=== PATIENT | male | born 1945 | race Caucasian/White ===

== ENCOUNTER → 2019-11-07 10:48 | Outpatient (CLI) | payer MEDICARE, SELFPAY ==
--- NOTE | 2019-11-07 11:00 | CT_ITS ---
PROCEDURE: CT TEMPORAL BONE WITHOUT CLINICAL HISTORY: HEARING LOSS COMPARISON: No exams were available for comparison TECHNIQUE: Axial images obtained with sagittal and coronal reformats. All CT scans at the facility use one or more dose reduction, viz: automated exposure control, ma/kV adjustment per patient size (including targeted exams where dose is matched to indication, i.e. head), or iterative reconstruction technique. FINDINGS: Mucosal thickening involves the ethmoid sinuses on the right anteriorly. Maxillary sinuses show no significant mucosal thickening or air-fluid levels. There is some minimal cortical thickening involving the posterior lateral wall the left maxillary sinus nonspecific. Sphenoid and frontal sinuses are unremarkable. The mastoid sinuses have an unremarkable appearance. The middle ears are well aerated. No mass, bony erosive change, or scutal erosion or epitympanic opacification apparent. The middle ear ossicles have an unremarkable appearance. The petrous bone/temporal bone is unremarkable. The Incidental note is made generalized atrophy of the brain with prominence of the subarachnoid space in the right middle cranial fossa anteriorly and may be due to an arachnoid cyst at 4 by 2.9 cm. The scattered small nodes are present in the neck. The TMJs are unremarkable.. There is mild leftward nasal septal deviation superiorly and rightward nasal septal deviation inferiorly with a small septal spur projecting toward the right IMPRESSION: 1. Unremarkable temporal bone CT without contrast. 2. Minimal mucosal thickening of the ethmoid sinuses on the right Dictated by: Tiburcio Amador MD 11/08/2019 10:02 Electronically signed by Tiburcio Amador MD in [place] 11/08/2019 10:02
== END ==
PROVIDERS: PCP Internal Medicine Adolescent Medicine; Visit Provider Otolaryngology
DX: H90.3 Sensorineural hearing loss, bilateral (principal)
CPT/HCPCS: 70480

== ENCOUNTER → 2019-11-16 10:34 | Outpatient (CLI) | payer MEDICARE, SELFPAY ==
[2019-11-17 08:27] LABS: Covid-19 Nasal PCR Sendout UK Not Detected
== END ==
PROVIDERS: PCP Otolaryngology; Visit Provider Otolaryngology
DX: Z01.818 Encounter for other preprocedural examination (principal)
CPT/HCPCS: U0003; U0004

== ENCOUNTER 2021-07-25 17:02 | Emergency (ER) | payer MEDICARE, SELFPAY ==
[2021-07-25 17:04] VITALS: BP 109/91; PULSE 88; RESP 14; TEMP 36.8; O2SAT 97; BMI 29.0
--- NOTE | 2021-07-25 17:21 | CT_ITS ---
PROCEDURE INFORMATION: Exam: CT Head Without Contrast Exam date and time: 07/25/2021 5:21 PM Age: 75 years old Clinical indication: Pain; Other: Head hurting after physical labor yesterday; Prior surgery; Surgery date: 6+ months; Surgery type: Hearing aid implant TECHNIQUE: Imaging protocol: Computed tomography of the head without contrast. Total images: 281 Radiation optimization: All CT scans at this facility use at least one of these dose optimization techniques: automated exposure control; mA and/or kV adjustment per patient size (includes targeted exams where dose is matched to clinical indication); or iterative reconstruction. COMPARISON: CT TEMPORAL BONE WITHOUT 11/07/2019 11:38 AM FINDINGS: Brain: Moderate generalized atrophy. Moderate bilateral white matter hypodensities which are nonspecific but most commonly associated with chronic microvascular ischemia in this age group. 4.1 x 3.0 cm arachnoid cyst in the anterior right middle cranial fossa is unchanged. 2.4 x 1.1 cm arachnoid cyst in the anterior left middle cranial fossa is unchanged. Mild prominence of the peripheral CSF spaces, felt to be related to generalized atrophy. No evidence of acute intracranial hemorrhage. Salter-white differentiation is well maintained. No CT evidence of large territory acute or subacute intracranial ischemia/infarct. No intracranial mass lesions. No significant midline shift. No herniation. Cerebral ventricles: Mild compensatory ventriculomegaly secondary to central atrophy. Normal variant lateral ventricular asymmetry unchanged, left larger than right, felt to be responsible for the slight 2 mm rightward positioning of the septum pellucidum. Paranasal sinuses: Visualized paranasal sinuses are clear. Mastoid air cells: Prior right mastoidectomy with cochlear implant. No gross hardware complication. There are few opacified right inferior mastoid air cells which might represent residual postoperative granulation tissue or an element of mastoiditis. Left mastoid air cells are clear. Orbital cavity: Visualized orbital contents demonstrate no acute abnormality. Vasculature: Mild-moderate calcific atherosclerosis. No asymmetric vascular hyperdensities suggestive of thrombosis are identified. Bones/joints: The calvarium and visualized facial bones are intact. Soft tissues: The scalp and visualized soft tissues demonstrate no acute abnormality. Other findings: The IACs are grossly normal. The sella is grossly normal. IMPRESSION: 1. No acute intracranial process. No intracranial hemorrhage or mass effect. 2. Atrophy and chronic microvascular changes consistent with age. 3. Right mastoidectomy and cochlear implant with a few opacified right inferior mastoid air cells which may be due to postoperative changes or mild mastoiditis. 4. Chronic arachnoid cysts in the middle cranial fossa bilaterally, unchanged. 5. Mild-moderate calcific atherosclerosis.
--- NOTE | 2021-07-25 17:21 | CT_ITS ---
PROCEDURE INFORMATION: Exam: CT Cervical Spine Without Contrast Exam date and time: 07/25/2021 5:21 PM Age: 75 years old Clinical indication: Neck pain; Additional info: Pain in head and neck- no fall -- has inplant for hearing TECHNIQUE: Imaging protocol: Computed tomography images of the cervical spine without contrast. Total images: 477 Radiation optimization: All CT scans at this facility use at least one of these dose optimization techniques: automated exposure control; mA and/or kV adjustment per patient size (includes targeted exams where dose is matched to clinical indication); or iterative reconstruction. COMPARISON: CT HEAD/BRAIN WO CON 07/25/2021 5:29 PM FINDINGS: Bones/joints: Osteopenia. Craniocervical alignment is normal. The odontoid is intact. No fractures. Straightening of cervical lordosis which may be positional or related to an element of muscular strain/spasm. 2 mm degenerative anterolisthesis C3-C4 and 1 mm degenerative anterolisthesis C4-C5. No blastic or lytic lesions. Discs/Spinal canal/Neural foramina: The occipital condyles are intact. Moderate-severe degenerative sclerosis and spurring at the atlantodens interval. No jumped or perched facets. There is right-sided facet ankylosis C2-C3. There is right-sided moderate facet hypertrophic change C3-C4 and C7-T1. There is moderate left-sided facet hypertrophic change C3-C4 and C4-C5. There is disc space narrowing with endplate sclerosis and marginal spurring which is moderate-severe at C5-C6 and C6-C7, and mild at C4-C5 and C3-C4. No compressive soft disc protrusion or extrusion is evident by CT. Shallow posterior spondylotic protrusions C3-C4, C5-C6, and C6-C7. Mild central canal stenosis C3-C4. There is left foraminal stenosis which is moderate-severe at C3-C4 and mild at C4-C5 and C6-C7. There is right foraminal stenosis which is mild at C3-C4, C5-C6, and C6-C7. Thyroid: The visualized thyroid gland is unremarkable. Lungs: Visualized pulmonary apices are clear. Soft tissues: Paraspinous soft tissues are unremarkable without significant soft tissue swelling or soft tissue hematoma. IMPRESSION: 1. No evidence of fracture or acute traumatic subluxation. 2. Osteopenia and osteoarthritic changes with mild central canal stenosis at C3-C4 and bilateral foraminal stenoses detailed above. 3. Straightening of cervical lordosis may be positional or related to an element of muscular strain/spasm.
--- NOTE | 2021-07-25 17:28 | PC.NURSE ---
radiology in to get patient and take him to CT scan
--- NOTE | 2021-07-25 17:37 | PC.NURSE ---
pt back from CT scan
--- NOTE | 2021-07-25 18:13 | [facility].EDGENADL ---
ED Disposition Clinical Impression: Cervical muscle strain Qualifiers: Encounter type: initial encounter Qualified Code(s): S16.1XXA - Strain of muscle, fascia and tendon at neck level, initial encounter Disposition: Home, Self-Care Condition on Discharge: Good Instructions: DI for Cervical Muscle Strain Prescriptions: methocarbamoL [Methocarbamol 500mg Tablet] 1,000 mg PO TID 10 Days #60 tab Transmission Status: Pending to [id number] Acetaminophen [Tylenol 500mg tablet] 500 mg PO Q6 #24 tab Transmission Status: Pending to [id number] Referrals: Trenton Galloway MD [Primary Care Provider] - - Critical Care Critical Care Time: No Attestation: On 07/25/21, the high probability of a clinically significant, sudden or life threatening deterioration of the following system(s) required my full and direct attention, intervention and personal management. The time I documented below is in addition to time spent performing reported procedures but includes the following listed in this critical care notation. Medical Decision Making - Medical Records Medical records reviewed: Yes: I reviewed the patient's medical records. - Daniel Inquiry Pt receiving controlled substance: No Vital Signs: 07/25/21 17:04 Temperature 98.3 F Temperature Source Oral Pulse Rate [Left Radial] 88 Respiratory Rate 14 Blood Pressure [Left Arm] 109/91 L Blood Pressure Mean [Left Arm] 97 Blood Pressure Source [Left Arm] Automatic Cuff Blood Pressure Position [Left Arm] Sitting 02 Sat by Pulse Oximetry 97 Oxygen Delivery Method Room Air Orders (Tests/Meds): ED MEDICATIONS Discontinued Medications Generic Name Dose Route Start Last Admin Trade Name Juancho PRN Reason Stop Dose Admin Ibuprofen 800 mg 07/25/21 17:22 07/25/21 17:28 Ibuprofen 400 Mg Tablet PO 07/25/21 17:23 800 mg ONCE ONE Administration Methocarbamol 1,000 mg 07/25/21 17:22 07/25/21 17:28 Methocarbamol 500mg Tablet PO 07/25/21 17:23 1,000 mg ONCE STA Administration - CT Data CT Scan: Head, C-Spine Time Received: 19:[address] Reviewed: Yes: I have reviewed the patient's CT results, I have viewed the radiologist's interpretation Findings Narrative: IMPRESSION: 1. No acute intracranial process. No intracranial hemorrhage or mass effect. 2. Atrophy and chronic microvascular changes consistent with age. 3. Right mastoidectomy and cochlear implant with a few opacified right inferior mastoid air cells which may be due to postoperative changes or mild mastoiditis. 4. Chronic arachnoid cysts in the middle cranial fossa bilaterally, unchanged. 5. Mild-moderate calcific atherosclerosis. IMPRESSION: 1. No evidence of fracture or acute traumatic subluxation. 2. Osteopenia and osteoarthritic changes with mild central canal stenosis at C3-C4 and bilateral foraminal stenoses detailed above. 3. Straightening of cervical lordosis may be positional or related to an element of muscular strain/spasm. - Reevaluation(s) Time: 19:02 Reevaluation #1: On reevaluation, the patient is feeling better. Findings are consistent with cervical muscle spasm and strain. Patient be discharged on short course of muscle relaxers. Needs to follow-up with PCP. Given strict return precautions. Verbalized understanding. Medical Decision Narrative: 75-year-old male presenting with some right-sided neck pain. Patient does have evidence of strain in the right paraspinal muscles as well as spasm. Imaging will be obtained. General Adult HPI - General Chief complaint: PAIN Stated complaint: right side of neck pain Time Seen by Provider: 07/25/21 17:10 Mode of Arrival: Ambulatory Limitations: No Limitations Description of Symptoms (Recalled from ER Triage Doc. by RN): Pt c/o pain in the rt neck, extending into the rt shoulder that began last night. Reports previous surgery to rt shoulder, limiting ROM. Grandson states that pt h
[2021-07-25 19:08] VITALS: BP 112/84; PULSE 82; RESP 16; TEMP 36.8; O2SAT 98
== END 2021-07-25 19:09 | disposition home or self-care (01) ==
PROVIDERS: Emergency Provider Emergency Medicine; PCP Internal Medicine Adolescent Medicine
DX: S16.1XXA Strain of muscle, fascia and tendon at neck level, initial encounter (principal); X50.0XXA Overexertion from strenuous movement or load, initial encounter; Y92.9 Unspecified place or not applicable
CPT/HCPCS: 70450; 72125; 99282; 99284

== ENCOUNTER → 2021-12-16 09:22 | Outpatient (CLI) | payer MEDICARE, SELFPAY ==
[2021-12-16 10:31] LABS: Basophils # 0.1 K/mm3 (0-0.2); Basophils % 0.9 % (0.1-2.0); Eosinophils # 0.1 K/mm3 (0.0-0.4); Eosinophils % 1.7 % (0.1-12.0); Hematocrit 46.8 % (42.0-52.0); Hemoglobin 15.8 g/dL (14.1-18.0); Lymphocytes # 2.1 K/mm3 (0.7-4.5); Lymphocytes % 26.3 % (10-50); Mean Corpuscular HGB Conc 33.7 g/dL (31.8-35.4); Mean Corpuscular Hemoglobin 35.3 pg (27.0-31.2); Mean Corpuscular Volume 104.8 fl (80-94); Mean Platelet Volume 8.2 fl (7.4-10.4); Monocytes # 0.7 K/mm3 (0.1-1.0); Monocytes % 9.2 % (1.7-9.3); Platelet Count 214 K/mm3 (142-424); Red Blood Count 4.46 M/mm3 (4.60-6.20); Red Cell Distribution Width 13.5 % (11.5-17.5)
[2021-12-16 10:47] LABS: Chloride 107 mmol/L (98-107); Potassium 4.2 mmoL/L (3.5-5.1); Sodium 138 mmol/L (136-145)
[2021-12-16 10:50] LABS: Alanine Aminotransferase 16 U/L (12-78); Albumin Level 3.9 g/dl (3.5-5.0); Albumin/Globulin Ratio 1.4 (1.1-1.8); Alkaline Phosphatase 96 U/L (38-126); Anion Gap 9.2 mEq/L (5-15); Aspartate Amino Transferase 27 U/L (17-59); Bilirubin,Total 0.7 mg/dl (0.2-1.3); Blood Urea Nitrogen 12 mg/dl (9-20); Carbon Dioxide 26 mmol/L (22.0-30.0); Estimated Glomerular Filt Rate 82 ml/min (>60); GFR (African American) 99 ML/MIN (>60); Globulin 2.8 g/dL (1.3-3.2); Total Protein,Serum 6.7 g/dl (6.3-8.2)
[2021-12-16 10:51] LABS: Calcium 9.6 mg/dl (8.4-10.2); Glucose 137 mg/dl (74-100)
[2021-12-16 12:34] LABS: Vitamin B12 326 pg/mL (239-931)
[2021-12-17 12:11] LABS: Rapid Plasma Reagin Ab Titer Non Reactive (NonRea<1:1)
== END ==
PROVIDERS: PCP Nurse Practitioner Family; Visit Provider Nurse Practitioner Family
DX: Z00.00 Encounter for general adult medical examination without abnormal findings (principal); R41.3 Other amnesia
CPT/HCPCS: 36415; 80053; 82607; 84443; 85025; 86592

== ENCOUNTER → 2022-02-15 11:41 | Outpatient (CLI) | payer MEDICARE, SELFPAY ==
[2022-02-15 18:19] LABS: Vitamin B12 606 pg/mL (239-931)
[2022-02-15 18:36] LABS: Folate 5.35 ng/mL
== END ==
PROVIDERS: PCP Nurse Practitioner Family; Visit Provider Nurse Practitioner Family
DX: R41.3 Other amnesia (principal)
CPT/HCPCS: 36415; 82607; 82746

== ENCOUNTER 2024-05-27 15:12 | Observation (INO) | payer MEDICARE, SELFPAY ==
[2024-05-27] VITALS (9 sets, daily range): BP systolic 108–130; BP diastolic 69–78; PULSE 53–88; RESP 13–20; TEMP 36.4–36.8; O2SAT 93–99; BMI 30.4; BMI 27.2
[2024-05-27 15:43] LABS: Basophils % 0.5 % (0.1-2.0); Eosinophils % 0.1 % (0.1-12.0); Hemoglobin 17.4 g/dL (14.1-18.0); Lymphocytes # 1.2 K/mm3 (0.7-4.5); Lymphocytes % 15.9 % (10-50); Mean Corpuscular HGB Conc 34.8 g/dL (31.8-35.4); Mean Corpuscular Hemoglobin 35.5 pg (27.0-31.2); Monocytes # 0.7 K/mm3 (0.1-1.0); Monocytes % 9.9 % (1.7-9.3); Neutrophils # 5.5 K/mm3 (1.8-7.8); Neutrophils % 73.2 % (37.0-80.0); Platelet Count 169 K/mm3 (142-424); Red Cell Distribution Width 13.3 % (11.5-17.5); White Blood Count 7.5 K/mm3 (4.8-10.8)
--- NOTE | 2024-05-27 15:48 | ECG_ITS ---
APPROVED REPORT Exam: Resting ECG HR:57 bpm ECG Measurements Heart Rate 57 AXES QRSd 101 QRS -11 QT 470 T -1 QTc 463 Conclusion A-fib with controlled response Prolonged QT Electronically signed by : PENELOPE MONIQUE, 05/27/2024 20:58:05
[2024-05-27 15:53] LABS: Activated Partial Thrombo Time 28.2 seconds (22.8-30.6)
[2024-05-27] MEDS: LACTATED RINGERS 1000ML 1,000 ML 999 ML IV ×2 (15:54→22:36)
--- NOTE | 2024-05-27 15:54 | PC.NURSE ---
I called and spoke with Miriam at poison control. They suggest a tylenol level now and again at 1700.
[2024-05-27 15:59] LABS: VBG Base Excess -4.4 mmol/L (-2.4-2.3); VBG HCO3 22.2 mmol/L (23-30); VBG Oxygen Saturation 62.6 % (50-70); VBG PCO2 46.8 mmol/L (35-51); VBG PH 7.29 mmol/L (7.31-7.41); VBG PO2 34.4 mmol/L (28-40); VBG Total CO2 23.6 mmol/L (23-27)
[2024-05-27 16:00] LABS: Albumin Level 3.7 g/dl (3.5-5.0); Chloride 99 mmol/L (98-107)
[2024-05-27 16:01] LABS: Sodium 131 mmol/L (136-145)
[2024-05-27 16:03] LABS: Alanine Aminotransferase 43 U/L (12-78); Albumin/Globulin Ratio 1.3 (1.1-1.8); Alkaline Phosphatase 90 U/L (38-126); Aspartate Amino Transferase 78 U/L (17-59); Bilirubin,Total 0.8 mg/dl (0.2-1.3); Blood Urea Nitrogen 21 mg/dl (9-20); Calcium 8.9 mg/dl (8.4-10.2); Carbon Dioxide 24 mmol/L (22.0-30.0); Creatinine Clearance Estimated 55 mL/min (50-200); Estimated Glomerular Filt Rate 49 ml/min (>60); GFR (African American) 59 ML/MIN (>60); Globulin 2.8 g/dL (1.3-3.2); Glucose 299 mg/dl (74-100); INR 0.97 (0.9-1.1); Prothrombin Time 10.9 seconds (10.1-12.5); Total Protein,Serum 6.5 g/dl (6.3-8.2)
[2024-05-27 16:03] LABS: Lactate Venous 4.8 mmol/L (0.4-2.0)
[2024-05-27 16:04] LABS: Lipase 272 U/L (23-300); Magnesium 2.1 mg/dl (1.6-2.3)
[2024-05-27 16:15] LABS: Ammonia < 9 umol/L (9-30)
--- NOTE | 2024-05-27 16:18 | ED_ITS ---
Discharge Plan Disposition Patient Disposition: Admitted Chief Complaint: Overdose Prescriptions Prescriptions: No Action memantine 5 mg tablet 5 mg PO BID mecobalamin (vitamin B12) 1,000 mcg tablet,chewable 1,000 mcg PO DAILY Referrals Follow up/Referrals: Aixa Shore APRN [Primary Care Provider] - See instructions Clinical Impressions Clinical Impression: Acetaminophen overdose, CYNTHIA (acute kidney injury), Metabolic acidosis Print Language Print Language: Icelandic Discharge ED Provider: Dago Crockett General Adult HPI General Chief complaint: Overdose Stated complaint: sent by [employer], exp to flu Time Seen by Provider: 05/27/24 15:14 Mode of Arrival: Wheelchair Source of Information: Patient and Relative Limitations: No Limitations Description of Symptoms (Recalled from ER Triage Doc. by RN): pt has been sick x3d. pt c/o nausea, dizziness, nonproductive cough, and myalgia. Family reports the pt drank an entire bottle of cold/flu medication between [id number]. pt has had a total of 7.7 gram of tylenol, 237 mg dextromethorphan HBR, 4,740mg guaifenesin, and 118.5mg phenylephrine HCL. pt states at this time he just feels more fatigued. pt is extremely [place] and per family has some cognitive delay causing minimal memory issues. History of Present Illness HPI narrative: Please note that above description of symptoms, in this electronic medical record under categorization of recalled from ER triage doctor by RN are reflective of an initial nursing assessment, however, is not reflective of my full history and physical exam that was personally taken and clarified. Consequentially, this preceding description of symptoms, which may include the patient's categorized chief complaint in the EMR, do not reflect my personal clinical impression, and the ultimate description of history of present illness and patient stated complaints should be deferred to this section of the note. Unless stated otherwise or congruent with this section of the note, additional signs, symptoms, or incongruence should be interpreted as inaccurate with my clinical impression. Related Data Home Medications ?Medication ?Instructions ?Recorded ?Confirmed mecobalamin (vitamin B12) 1,000 1,000 mcg PO DAILY 02/15/22 02/15/22 mcg chewable tablet memantine 5 mg tablet 5 mg PO BID 02/15/22 02/15/22 Allergies Allergy/AdvReac Type Severity Reaction Status Date / Time No Known Allergies Allergy Verified 05/27/24 15:44 [facility] Disclaimer: The information contained in this section may have been updated after the patient was seen, as this information can be updated by other users. Family History (Updated 02/15/22 @ 10:18 by Vanita Ryan) Other Cancer Diabetes Social History (Updated 02/15/22 @ 10:19 by Vanita Ryan) Smoking Status: Never smoker alcohol intake: former substance use type: denies use current occupational status: retired Travel in the last 8 weeks: None household members: other housing: house marital status: Have you lived/traveled outside [place] in past 30 days?: No Contact w/someone who lives/traveled outside US past 30 days?: No Exposure to someone with infectious disease in past 14 days?: No Do you have a fever (greater than 100.4 F or 38 C)?: No Have you tested positive for COVID-19: No Exposed to someone with COVID-19 in past 14 days?: No Do you have a sore throat?: Yes Do you have a cough?: Yes Do you have any weakness?: Yes Do you have any diarrhea?: No Are you experiencing any unusual bleeding?: No Do you have any muscle aches/pain?: No Do you have any abdominal pain?: No Are you experiencing loss of taste or smell?: No Other Medical History Have you received the Flu Vaccine for this season: Yes Have you received the Pneumonia Vaccine: No ROS Obtained: Yes All systems reviewed & no additional complaints except as documented Physical Exam General General appearance: alert and lethargic Head Head exam: atraumatic and normocephalic Eye Eye exam: Present PERRL, EOMI and miosis Neck Neck exam: Present normal inspection, full ROM and trachea midline Respiratory Respiratory exam: Present normal lung sounds bilaterally; Absent respiratory distress, wheezes, stridor, accessory muscle use or prolonged expiratory phase Cardiovascular Cardiovascular exam: Present regular rate, normal rhythm and other (Pulses equal symmetric in upper and lower extremities) Abdominal Exam Abdominal exam: Present soft; Absent distention, tenderness or pulsatile mass Extremities Exam Extremities exam: Absent edema Neurological Exam Neurological exam: Present alert, oriented X3 and CN II-XII intact; Absent motor sensory deficit Skin Skin exam: Present warm and dry; Absent diaphoresis or erythema Medical Decision Making Medical Records Medical records reviewed: Yes I reviewed the patient's medical records. Screening: Per USPSTF and CDC recommendations, given the prevalence of disease in our region, it is our hospital?s policy to screen for HIV and viral Hepatitis for all patients aged 18 and over and those with ongoing risk factors. Daniel Inquiry Pt receiving controlled substance: No Daniel was queried for this patient: No Vital Signs: 05/27/24 15:26 05/27/24 16:00 05/27/24 16:15 Temperature 97.9 F Temperature Source Oral Pulse Rate 53 L 54 L Pulse Rate [Left] 56 L Respiratory Rate 14 16 Blood Pressure 118/70 108/69 L Blood Pressure [Right Arm] 130/77 Blood Pressure Mean [Right Arm] 94 Blood Pressure Source [Right Arm] Automatic Cuff Blood Pressure Position [Right Arm] Sitting 02 Sat by Pulse Oximetry 99 94 L 93 L Oxygen Delivery Method Room Air Room Air 05/27/24 16:30 05/27/24 16:46 05/27/24 17:00 Temperature Temperature Source Pulse Rate 54 L 61 66 Pulse Rate [Left] Respiratory Rate 15 16 14 Blood Pressure 108/70 L 119/74 129/71 Blood Pressure [Right Arm] Blood Pressure Mean [Right Arm] Blood Pressure Source [Right Arm] Blood Pressure Position [Right Arm] 02 Sat by Pulse Oximetry 93 L 95 96 Oxygen Delivery Method Room Air Room Air Lab Data Lab Results 05/27/24 15:30: WBC 7.5, RBC 4.90, Hgb 17.4, Hct 50.0, MCV 102.0 H, MCH 35.5 H, MCHC 34.8, RDW 13.3, Plt Count 169, MPV 11.0 H, Neut % (Auto) 73.2, Lymph % (Auto) 15.9, Charlton % (Auto) 9.9 H, Eos % (Auto) 0.1, Baso % (Auto) 0.5, Neut # (Auto) 5.5, Lymph # (Auto) 1.2, Charlton # (Auto) 0.7, Eos # (Auto) 0.0, Baso # (Auto) 0.0, PT 10.9, INR 0.97, APTT 28.2, Sodium 131 L, Potassium 4.0, Chloride 99, Carbon Dioxide 24, Anion Gap 12.0, BUN 21 H, Creatinine 1.40 H, Estimated Creat Clear 55, Estimated GFR 49 L, Est GFR ( Amer) 59, Glucose 299 H, Calcium 8.9, Magnesium 2.1, Total Bilirubin 0.8, AST 78 H, ALT 43, Alkaline Phosphatase 90, Total Protein 6.5, Albumin 3.7, Globulin 2.8, Albumin/Globulin Ratio 1.3, Lipase 272, Salicylates < 1.0 L, Acetaminophen 82 H, Plasma/Serum Alcohol < 10, HIV Ag/Ab Combo Qual Negative 05/27/24 15:47: VBG pH 7.29 L, VBG pCO2 46.8, VBG pO2 34.4, VBG HCO3 22.2 L, VBG Total CO2 23.6, VBG O2 Saturation 62.6, VBG Base Excess -4.4 L, VBG Lactic Acid 4.8 H 05/27/24 15:58: Lactate 2.6 H, Ammonia < 9 L 05/27/24 15:30 05/27/24 15:30 Orders (Tests/Meds): ED MEDICATIONS Generic Name Dose Route Start Last Admin Trade Name Freq PRN Reason Stop Dose Admin Lactated Ringer's 1,000 mls @ 999 mls/hr 05/27/24 17:32 Lactated Ringer's 1000 Ml Bag IV 05/27/24 18:32 .Q1H1M ONE Discontinued Medications Generic Name Dose Route Start Last Admin Trade Name Freq PRN Reason Stop Dose Admin Acetylcysteine 12,700 mg 05/27/24 16:15 05/27/24 16:44 Acetylcysteine 20% 30ml Bottle 140 mg/kg (86605 mg) 05/27/24 16:16 12,700 mg PO Administration ONCE ONE Lactated Ringer's 1,000 mls @ 999 mls/hr 05/27/24 15:27 05/27/24 15:54 Lactated Ringer's 1000 Ml Bag IV 05/27/24 16:27 999 mls/hr .Q1H1M ONE Administration Magnesium Sulfate 2 gm in 50 mls @ 50 mls/hr 05/27/24 16:21 05/27/24 16:34 Magnesium Sulfate 2gm/50ml Premix IV 05/27/24 17:20 50 mls/hr ONCE ONE Administration Ondansetron HCl 4 mg 05/27/24 16:16 05/27/24 16:44 Ondansetron 4mg/2ml Vial IV 05/27/24 16:17 4 mg ONCE ONE Administration ORDERS Category Date Time Status Acetaminophen Stat Lab 05/27/24 15:30 Completed Ammonia Stat Lab 05/27/24 15:58 Completed Complete Blood Count Auto Diff Stat Lab 05/27/24 15:30 Completed Comprehensive Metabolic Panel Stat Lab 05/27/24 15:30 Completed Ethanol [Ethyl Alcohol] Stat Lab 05/27/24 15:30 Completed HIV Combo Stat Lab 05/27/24 15:30 Completed Hep C Ab with Reflex to RNA Stat Lab 05/27/24 15:30 Received Lactic Acid Stat Lab 05/27/24 15:58 Completed Lipase Stat Lab 05/27/24 15:30 Completed Magnesium Stat Lab 05/27/24 15:30 Completed PT INR [Prothrombin Time INR] Stat Lab 05/27/24 15:30 Completed PTT [Activated Partial Thrombo Time] Stat Lab 05/27/24 15:30 Completed Salicylate Stat Lab 05/27/24 15:30 Completed VBG [Venous Blood Gas] Stat RT 05/27/24 15:47 Completed Medical Decision Narrative: 78-year-old male history of mild cognitive impairment presenting with accidental overdose. Patient took an entire bottle of cold and flu medicine prior to arrival from 10 AM until 2 PM. Patient ingested a total of 7.7 g of acetaminophen, 240 mg of dextromethorphan, 4700 mg of guaifenesin as well as 118 mg of phenylephrine. Patient sleepy and lethargic with family, brought in for further evaluation. On my evaluation, patient has 0 complaints. He just states that he feels sleepy. No chest pain, shortness of breath, nausea, vomiting, abdominal pain, or any other concerns. History was obtained via conversation with patient and family. On arrival, patient hemodynamically stable, alert, oriented x4, appropriate, GCS 15, moving all extremities spontaneously, pupils miotic, but equal and reactive to light. Full physical exam performed and significant for tired appearing male no acute distress. Normal respiratory rate, saturating appropriately, nontachycardic, normotensive, speaking full sentences. Mildly tired, but arousable by voice with minimal stimulation. Differential includes accidental overdose, purposeful overdose, coingestion, among others. Patient placed on continuous cardiac monitoring and continuous pulse ox with initial blood pressure 130/77, heart rate 56, saturation 99% on room. Independent interpretation of EKG shows atrial fibrillation rate controlled 57 bpm with QRS 101 QTc 463. Leftward leaning axis. No obvious acute ischemic changes. Patient was given 2 g magnesium, IV fluids for symptomatic management and correction of underlying abnormalities. Workup independently interpreted and significant for nonactionable CBC. Chemistry with CYNTHIA creatinine 1.4 from normal baseline. Patient's sodium low at 131. LFTs effectively normal, AST mildly elevated at 78, otherwise all within normal limits. Lipase negative. Salicylates negative, alcohol negative. Acetaminophen 82. VBG with mild acidemia 7.29/CO2 normal/bicarb mildly low at 22.2. Venous lactate 2.6, VBG lactate 4.8. Unsure of discrepancy, but patient receiving fluids regardless. Patient empirically given N-acetylcysteine 140 mg/kg. Poison control recommended 4-hour acetaminophen levels and 70 mg/kg doses every 4 hours until acetaminophen levels plateau. Hospital medicine contacted and case was discussed, to be admitted. Because patient high risk for clinical decompensation, deemed appropriate for inpatient admission. Results were relayed to patient who voiced understanding and patient was agreeable to inpatient admission and management. Patient was admitted to the hospital for further definitive management. Cap Machine Operator disclaimer Much of this encounter note is an electronic agriculture engineer spoken language to printed text. Electronic agriculture engineer of the spoken language may permit errors. Although I have reviewed the note, some errors may still exist. Critical Care Critical Care Time Critical Care Time: Yes (toxicology) Attestation: On 05/27/24, the high probability of a clinically significant, sudden or life threatening deterioration of the following system(s) required my full and direct attention, intervention and personal management. The time I documented below is in addition to time spent performing reported procedures but includes the following listed in this critical care notation. Total Time Total Critical Care Time: 45
[2024-05-27 16:29] LABS: Lactic Acid 2.6 mmol/L (0.7-2.1)
[2024-05-27 16:29] LABS: Ethyl Alcohol < 10 mg/dl (0-10); Salicylate < 1.0 mg/dL (2.0-20.0)
[2024-05-27 16:30] LABS: Acetaminophen 82 ug/ml (10-30)
[2024-05-27] MEDS: MAGNESIUM SULFATE IN WATER 2 GM/50 ML PIGGYBACK IV (16:34)
[2024-05-27] MEDS: ACETYLCYSTEINE 20% 30ML BOTTLE 12700 MG PO (16:44)
[2024-05-27] MEDS: ONDANSETRON 4MG/2ML VIAL 4 MG IV (16:44)
[2024-05-27 16:57] LABS: HIV Combo NEGATIVE (Negative)
--- NOTE | 2024-05-27 17:48 | EXP.HP ---
History of Present Illness *Admission Date: 05/27/24 *Reason for visit:: Call, accidental Tylenol overdose *History of present illness: Mr. Olivares is a 78-year-old male on no medications at home. History of cochlear implant, memory loss, hearing deficit. Presented to the ER today due to concern for being sick for the past 3 days with some nausea and nonproductive cough. Family brought him in however because he inadvertently drank a whole bottle of generic DayQuil. Concern for Tylenol overdose. In the ER, he was calculated that the patient consumed between the hours of 9 AM and 1 PM a total of 7.7 gram of tylenol, 237 mg dextromethorphan HBR, 4,740mg guaifenesin, and 118.5mg phenylephrine HCL. pt states at this time he just feels more fatigued. Patient hard of hearing, much of history obtained from his family at bedside. Workup in the ER with cardiac monitoring, labs showed A-fib rate controlled at 57. QTc 463. He was given 2 g of magnesium. IV fluids were initiated. Questionable CYNTHIA versus CKD as his last creatinine was from 2 years ago. Creatinine is 1.4 today. LFTs are normal. Tylenol level of 80. VBG with pH of 7.29 and bicarb of 22. Lactate 4.8. Patient treated empirically with 140 mg/kg of N-acetylcysteine. Poison control was contacted and recommended 4-hour Tylenol levels and 70 mg/kg doses of N-acetylcysteine with monitoring overnight in the hospital. Monitoring until Tylenol level plateaus. Medicine was consulted for admission and further management. On arrival to the floor, patient is independently mobile. Alert and oriented. Answers questions to the best of his ability given his difficulty hearing. Stable on room air. No nausea or vomiting. Denies any belly pain on exam. [facility] Disclaimer: The information contained in this section may have been updated after the patient was seen, as this information can be updated by other users. Family History Other Cancer Diabetes Social History Smoking Status: Never smoker alcohol intake: former substance use type: denies use current occupational status: retired Travel in the last 8 weeks: None household members: other housing: house marital status: Have you lived/traveled outside [place] in past 30 days?: No Contact w/someone who lives/traveled outside US past 30 days?: No Exposure to someone with infectious disease in past 14 days?: No Do you have a fever (greater than 100.4 F or 38 C)?: No Have you tested positive for COVID-19: No Exposed to someone with COVID-19 in past 14 days?: No Do you have a sore throat?: Yes Do you have a cough?: Yes Do you have any weakness?: Yes Do you have any diarrhea?: No Are you experiencing any unusual bleeding?: No Do you have any muscle aches/pain?: No Do you have any abdominal pain?: No Are you experiencing loss of taste or smell?: No Other Medical History Have you received the Flu Vaccine for this season: Yes Have you received the Pneumonia Vaccine: No Review of Systems Review of Systems Review of systems (narrative): 14 point review of systems performed, pertinent positives and negatives as per [facility] Meds Home Medications and Allergies Home Medications ?Medication ?Instructions ?Recorded ?Confirmed ?Type No Known Home Medications 05/27/24 05/27/24 History New Prescriptions to Start Prescriptions: Allergies Allergy/AdvReac Type Severity Reaction Status Date / Time No Known Allergies Allergy Verified 05/27/24 15:44 Exam Data for Last 24 hours Vital signs and Labs for Last 24 Hours: Temp Pulse Resp BP Pulse Ox O2 Del Method 97.9 F 66 14 129/71 96 Room Air 05/27/24 15:26 05/27/24 17:00 05/27/24 17:00 05/27/24 17:00 05/27/24 17:00 05/27/24 17:00 Laboratory Results - last 24 hr 05/27/24 15:30: WBC 7.5, RBC 4.90, Hgb 17.4, Hct 50.0, MCV 102.0 H, MCH 35.5 H, MCHC 34.8, RDW 13.3, Plt Count 169, MPV 11.0 H, Neut % (Auto) 73.2, Lymph % (Auto) 15.9, Henderson % (Auto) 9.9 H, Eos % (Auto) 0.1, Baso % (Auto) 0.5, Neut # (Auto) 5.5, Lymph # (Auto) 1.2, Henderson # (Auto) 0.7, Eos # (Auto) 0.0, Baso # (Auto) 0.0, PT 10.9, INR 0.97, APTT 28.2, Sodium 131 L, Potassium 4.0, Chloride 99, Carbon Dioxide 24, Anion Gap 12.0, BUN 21 H, Creatinine 1.40 H, Estimated Creat Clear 55, Estimated GFR 49 L, Est GFR ( Amer) 59, Glucose 299 H, Calcium 8.9, Magnesium 2.1, Total Bilirubin 0.8, AST 78 H, ALT 43, Alkaline Phosphatase 90, Total Protein 6.5, Albumin 3.7, Globulin 2.8, Albumin/Globulin Ratio 1.3, Lipase 272, Salicylates < 1.0 L, Acetaminophen 82 H, Plasma/Serum Alcohol < 10, HIV Ag/Ab Combo Qual Negative 05/27/24 15:47: VBG pH 7.29 L, VBG pCO2 46.8, VBG pO2 34.4, VBG HCO3 22.2 L, VBG Total CO2 23.6, VBG O2 Saturation 62.6, VBG Base Excess -4.4 L, VBG Lactic Acid 4.8 H 05/27/24 15:58: Lactate 2.6 H, Ammonia < 9 L I & O for Last 24 hours: Intake & Output 05/24/24 05/25/24 05/26/24 05/27/24 23:59 23:59 23:59 23:59 Weight 90.718 kg Constitutional Constitutional: no acute distress and cooperative *Routine HEENT Exam Head: Present normocephalic Eye: Present EOMI and PERRL ENT: Present mucous membranes moist Comments: Cochlear on right side *Routine Neck Exam Neck: Present supple; Absent lymphadenopathy *Routine Respiratory Exam Respiratory: Present CTA bilaterally; Absent rhonchi, wheezes or crackles *Routine Cardiovascular Exam Cardiovascular: Present RRR *Routine Abdominal Exam Abdominal: Present soft and normoactive bowel sounds; Absent tenderness, distended or rebound *Routine Rectal Exam Rectal:: deferred *Routine Genitalia Exam Genitalia:: deferred *Routine Extremities Exam Extremities: Absent cyanosis, clubbing or edema *Routine Skin Exam Skin: Present warm; Absent rash *Routine Neurological Exam Neurological: Present alert, oriented X3 (Appears to be, difficult to assess due to hard of hearing. Interactive on exam however answering questions appropriately.) and moving all extremities; Absent altered mental status Comments: Very hard of hearing Assessment and Plan *Assessment and plan (1) Metabolic acidosis: Status: Acute Category: Medical Code(s): E87.20 - Acidosis, unspecified (2) CYNTHIA (acute kidney injury): Status: Acute Category: Medical Code(s): N17.9 - Acute kidney failure, unspecified (3) Acetaminophen overdose: Status: Acute Category: Medical Code(s): T39.1X1A - Poisoning by 4-Aminophenol derivatives, accidental (unintentional), initial encounter (4) Hearing loss: Status: Chronic Category: Medical Code(s): H91.90 - Unspecified hearing loss, unspecified ear (5) Memory loss: Status: Chronic Category: Medical Code(s): R41.3 - Other amnesia Plan Mr. Olivares is a 78-year-old male with concern for flu exposure who inadvertently overdosed on Tylenol today. Consume 7.7 g of Tylenol over 4 hours. Initial level in the ER of 82. Started on N-acetylcysteine. Discussed case with ER physician, request admission for serial labs and treatment every 4 hours. I agreed to admit for further management. Problems addressed as follows: Accidental Tylenol overdose -Initial level 82. Received 140 mg/kg once in the ER. Will monitor Tylenol level every 4 hours and dose every 4 hours N-acetylcysteine is 70 mg/kg. -Monitor for Tylenol plateau. Liver function normal at this time. Repeat CBC, CMP, magnesium ordered for the morning. -High risk for liver injury and possible decompensation. Necessitates inpatient management and close monitoring. -Slight metabolic acidosis, will consider repeat VBG in the morning if shows any liver abnormalities or electrolyte disturbances A-fib: Per my review of EKG, patient in rate controlled A-fib with heart rate of 57. Will discuss further with family pending response to treatment for Tylenol overdose. Would benefit from consideration of anticoagulation. -[id number] score of 2 CYNTHIA versus CKD -Last creatinine 2 years ago at 0.9. 1.4 today. Tolerating p.o. fluids. Will monitor with repeat labs in the morning. Hard of hearing: Complicates all aspects of his care. Difficult to communicate with patient and obtain good history/answers Full code Holding anticoagulation due to patient being independently mobile. Low risk for DVTs, Christopher score of 1 Regular diet
--- NOTE | 2024-05-27 17:51 | PC.NURSE ---
Poison Control called for an update on pt. Gave results thus far and verified that pt will be admitted. Poison Control would like a CMP level at 1900 along with the Tylenol level. orders placed.
[2024-05-27 17:56] LABS: Coronavirus 19, PCR Not Detected (NotDetected); Human Rhinovirus Not Detected (NotDetected); Influenza B, PCR Not Detected (NotDetected); Respiratory Syncytial Virus Not Detected (NotDetected)
--- NOTE | 2024-05-27 18:21 | PC.NURSE ---
arrived by w/c from ED
[2024-05-27 20:03] LABS: Reflex Lactic Add Lactic Reflex
[2024-05-27 20:34] LABS: Influenza A, PCR Detected (NotDetected)
[2024-05-27 20:42] LABS: Albumin Level 3.4 g/dl (3.5-5.0); Chloride 100 mmol/L (98-107); Potassium 3.7 mmoL/L (3.5-5.1); Sodium 132 mmol/L (136-145)
[2024-05-27 20:45] LABS: Acetaminophen 58 ug/ml (10-30); Alanine Aminotransferase 45 U/L (12-78); Albumin/Globulin Ratio 1.2 (1.1-1.8); Alkaline Phosphatase 86 U/L (38-126); Anion Gap 11.7 mEq/L (5-15); Aspartate Amino Transferase 76 U/L (17-59); Bilirubin,Total 0.5 mg/dl (0.2-1.3); Blood Urea Nitrogen 19 mg/dl (9-20); Calcium 8.9 mg/dl (8.4-10.2); Carbon Dioxide 24 mmol/L (22.0-30.0); Creatinine Clearance Estimated 59 mL/min (50-200); Estimated Glomerular Filt Rate 58 ml/min (>60); GFR (African American) 71 ML/MIN (>60); Globulin 2.8 g/dL (1.3-3.2); Glucose 253 mg/dl (74-100); Total Protein,Serum 6.2 g/dl (6.3-8.2)
[2024-05-27 20:52] LABS: Lactic Acid Follow Up (RFLX 1) 2.5 mmol/L (0.7-2.1)
[2024-05-27] MEDS: OSELTAMIVIR 75MG CAPSULE 75 MG PO (21:07)
[2024-05-27] MEDS: ACETYLCYSTEINE 20% 30ML BOTTLE 5860 MG PO (21:07)
[2024-05-27 22:28] LABS: Reflex Lactic (2 hrs) Add Lactic Reflex
[2024-05-27 23:30] LABS: Acetaminophen 36 ug/ml (10-30)
[2024-05-28] MEDS: ACETYLCYSTEINE 20% 30ML BOTTLE 5860 MG PO ×2 (01:13→05:18)
[2024-05-28 03:16] LABS: Acetaminophen 22 ug/ml (10-30)
[2024-05-28 04:00] VITALS: BP 144/74; PULSE 76; RESP 17; TEMP 36.6; O2SAT 98; BMI 27.6
[2024-05-28 06:54] LABS: Basophils % 0.7 % (0.1-2.0); Eosinophils # 0.1 K/mm3 (0.0-0.4); Eosinophils % 1.8 % (0.1-12.0); Hematocrit 46.9 % (42.0-52.0); Hemoglobin 16.4 g/dL (14.1-18.0); Lymphocytes # 1.8 K/mm3 (0.7-4.5); Lymphocytes % 32.1 % (10-50); Mean Corpuscular Hemoglobin 35.2 pg (27.0-31.2); Mean Corpuscular Volume 100.6 fl (80-94); Mean Platelet Volume 10.7 fl (7.4-10.4); Monocytes # 0.6 K/mm3 (0.1-1.0); Monocytes % 9.9 % (1.7-9.3); Neutrophils % 54.8 % (37.0-80.0); Platelet Count 157 K/mm3 (142-424); Red Blood Count 4.66 M/mm3 (4.60-6.20); Red Cell Distribution Width 13.2 % (11.5-17.5); White Blood Count 5.6 K/mm3 (4.8-10.8)
[2024-05-28 07:13] LABS: Albumin Level 3.1 g/dl (3.5-5.0); Chloride 102 mmol/L (98-107); Potassium 3.3 mmoL/L (3.5-5.1); Sodium 132 mmol/L (136-145)
[2024-05-28 07:15] LABS: Blood Urea Nitrogen 15 mg/dl (9-20)
[2024-05-28 07:16] LABS: Acetaminophen 15 ug/ml (10-30); Alanine Aminotransferase 36 U/L (12-78); Albumin/Globulin Ratio 1.2 (1.1-1.8); Alkaline Phosphatase 75 U/L (38-126); Anion Gap 7.3 mEq/L (5-15); Aspartate Amino Transferase 55 U/L (17-59); Bilirubin,Total 0.4 mg/dl (0.2-1.3); Calcium 8.4 mg/dl (8.4-10.2); Carbon Dioxide 26 mmol/L (22.0-30.0); Creatinine Clearance Estimated 72 mL/min (50-200); Estimated Glomerular Filt Rate 81 ml/min (>60); GFR (African American) 98 ML/MIN (>60); Globulin 2.5 g/dL (1.3-3.2); Glucose 147 mg/dl (74-100); Magnesium 2.1 mg/dl (1.6-2.3); Total Protein,Serum 5.6 g/dl (6.3-8.2)
[2024-05-28 07:22] LABS: HCV Ab Non Reactive (Non Reactive)
--- NOTE | 2024-05-28 07:53 | P.DS_ITS ---
General Admission date:: 05/27/24 Discharge date: 05/28/24 HPI HPI HPI: Mr. Olivares is a 78-year-old male on no medications at home. History of cochlear implant, memory loss, hearing deficit. Presented to the ER today due to concern for being sick for the past 3 days with some nausea and nonproductive cough. Family brought him in however because he inadvertently drank a whole bottle of generic DayQuil. Concern for Tylenol overdose. In the ER, he was calculated that the patient consumed between the hours of 9 AM and 1 PM a total of 7.7 gram of tylenol, 237 mg dextromethorphan HBR, 4,740mg guaifenesin, and 118.5mg phenylephrine HCL. pt states at this time he just feels more fatigued. Patient hard of hearing, much of history obtained from his family at bedside. Workup in the ER with cardiac monitoring, labs showed A-fib rate controlled at 57. QTc 463. He was given 2 g of magnesium. IV fluids were initiated. Questionable CYNTHIA versus CKD as his last creatinine was from 2 years ago. Creatinine is 1.4 today. LFTs are normal. Tylenol level of 80. VBG with pH of 7.29 and bicarb of 22. Lactate 4.8. Patient treated empirically with 140 mg/kg of N- acetylcysteine. Poison control was contacted and recommended 4-hour Tylenol levels and 70 mg/kg doses of N-acetylcysteine with monitoring overnight in the hospital. Monitoring until Tylenol level plateaus. Medicine was consulted for admission and further management. On arrival to the floor, patient is independently mobile. Alert and oriented. Answers questions to the best of his ability given his difficulty hearing. Stable on room air. No nausea or vomiting. Denies any belly pain on exam. Exam Data for Last 24 hours Vital signs and Labs for Last 24 Hours: Temp Pulse Resp BP Pulse Ox O2 Del Method 97.8 F 76 17 144/74 H 98 Room Air 05/28/24 04:00 05/28/24 04:00 05/28/24 04:00 05/28/24 04:00 05/28/24 04:00 05/28/24 07:00 Laboratory Results - last 24 hr 05/27/24 15:30: WBC 7.5, RBC 4.90, Hgb 17.4, Hct 50.0, MCV 102.0 H, MCH 35.5 H, MCHC 34.8, RDW 13.3, Plt Count 169, MPV 11.0 H, Neut % (Auto) 73.2, Lymph % (Auto) 15.9, Laurens % (Auto) 9.9 H, Eos % (Auto) 0.1, Baso % (Auto) 0.5, Neut # (Auto) 5.5, Lymph # (Auto) 1.2, Laurens # (Auto) 0.7, Eos # (Auto) 0.0, Baso # (Auto) 0.0, PT 10.9, INR 0.97, APTT 28.2, Sodium 131 L, Potassium 4.0, Chloride 99, Carbon Dioxide 24, Anion Gap 12.0, BUN 21 H, Creatinine 1.40 H, Estimated Creat Clear 55, Estimated GFR 49 L, Est GFR ( Amer) 59, Glucose 299 H, Calcium 8.9, Magnesium 2.1, Total Bilirubin 0.8, AST 78 H, ALT 43, Alkaline Phosphatase 90, Total Protein 6.5, Albumin 3.7, Globulin 2.8, Albumin/Globulin Ratio 1.3, Lipase 272, Salicylates < 1.0 L, Acetaminophen 82 H, Plasma/Serum Alcohol < 10, Hepatitis C Antibody Non reactive, HIV Ag/Ab Combo Qual Negative 05/27/24 15:47: VBG pH 7.29 L, VBG pCO2 46.8, VBG pO2 34.4, VBG HCO3 22.2 L, VBG Total CO2 23.6, VBG O2 Saturation 62.6, VBG Base Excess -4.4 L, VBG Lactic Acid 4.8 H 05/27/24 15:58: Lactate 2.6 H, Ammonia < 9 L 05/27/24 17:50: SARS-CoV-2 (PCR) Not detected, Influenza Type A (PCR) Detected A , Influenza Type B (PCR) Not detected, RSV (PCR) Not detected, Rhinovirus (PCR) Not detected 05/27/24 19:05: Sodium 132 L, Potassium 3.7, Chloride 100, Carbon Dioxide 24, Anion Gap 11.7, BUN 19, Creatinine 1.20, Estimated Creat Clear 59, Estimated GFR 58 L, Est GFR ( Amer) 71 D, Glucose 253 H, Calcium 8.9, Total Bilirubin 0.5, AST 76 H, ALT 45, Alkaline Phosphatase 86, Total Protein 6.2 L, Albumin 3.4 L, Globulin 2.8, Albumin/Globulin Ratio 1.2, Acetaminophen 58 H D 05/27/24 20:24: Lactate 2.5 H 05/27/24 23:07: Lactate 2.0, Acetaminophen 36 H 05/28/24 03:03: Acetaminophen 22 05/28/24 05:47: WBC 5.6 D, RBC 4.66, Hgb 16.4, Hct 46.9, MCV 100.6 H, MCH 35.2 H, MCHC 35.0, RDW 13.2, Plt Count 157, MPV 10.7 H, Neut % (Auto) 54.8, Lymph % (Auto) 32.1, Laurens % (Auto) 9.9 H, Eos % (Auto) 1.8, Baso % (Auto) 0.7, Neut # (Auto) 3.0, Lymph # (Auto) 1.8, Laurens # (Auto) 0.6, Eos # (Auto) 0.1, Baso # (Auto) 0.0, Sodium 132 L, Potassium 3.3 L, Chloride 102, Carbon Dioxide 26, Anion Gap 7.3, BUN 15, Creatinine 0.90 D, Estimated Creat Clear 72, Estimated GFR 81, Est GFR ( Amer) 98 D, Glucose 147 H D, Calcium 8.4, Magnesium 2.1, Total Bilirubin 0.4, AST 55 D, ALT 36, Alkaline Phosphatase 75, Total Protein 5.6 L, Albumin 3.1 L, Globulin 2.5, Albumin/Globulin Ratio 1.2, Acetaminophen 15 I & O for Last 24 hours: Intake & Output 05/25/24 05/26/24 05/27/24 05/28/24 23:59 23:59 23:59 23:59 Intake Total 500 / 500 Output Total 0 / 0 0 / 0 Balance 0 / 500 500 / 500 Weight 83.659 kg 84.822 kg Results Data Completed and Pending Labs on day of discharge: Labs from last 24 hours 05/28/24 05/28/24 05/27/24 05:47 03:03 23:07 WBC 5.6 D RBC 4.66 Hgb 16.4 Hct 46.9 MCV 100.6 H MCH 35.2 H MCHC 35.0 RDW 13.2 Plt Count 157 MPV 10.7 H Neut % (Auto) 54.8 Lymph % (Auto) 32.1 Laurens % (Auto) 9.9 H Eos % (Auto) 1.8 Baso % (Auto) 0.7 Neut # (Auto) 3.0 Lymph # (Auto) 1.8 Laurens # (Auto) 0.6 Eos # (Auto) 0.1 Baso # (Auto) 0.0 PT INR APTT VBG pH VBG pCO2 VBG pO2 VBG HCO3 VBG Total CO2 VBG O2 Saturation VBG Base Excess VBG Lactic Acid Sodium 132 L Potassium 3.3 L Chloride 102 Carbon Dioxide 26 Anion Gap 7.3 BUN 15 Creatinine 0.90 D Estimated Creat Clear 72 Estimated GFR 81 Est GFR ( Amer) 98 D Glucose 147 H D Lactate 2.0 Calcium 8.4 Magnesium 2.1 Total Bilirubin 0.4 AST 55 D ALT 36 Alkaline Phosphatase 75 Ammonia Total Protein 5.6 L Albumin 3.1 L Globulin 2.5 Albumin/Globulin Ratio 1.2 Lipase Salicylates Acetaminophen 15 22 36 H Plasma/Serum Alcohol SARS-CoV-2 (PCR) Hepatitis C Antibody HIV Ag/Ab Combo Qual Influenza Type A (PCR) Influenza Type B (PCR) RSV (PCR) Rhinovirus (PCR) 05/27/24 05/27/24 05/27/24 20:24 19:05 17:50 WBC RBC Hgb Hct MCV MCH MCHC RDW Plt Count MPV Neut % (Auto) Lymph % (Auto) Laurens % (Auto) Eos % (Auto) Baso % (Auto) Neut # (Auto) Lymph # (Auto) [place] # (Auto) Eos # (Auto) Baso # (Auto) PT INR APTT VBG pH VBG pCO2 VBG pO2 VBG HCO3 VBG Total CO2 VBG O2 Saturation VBG Base Excess VBG Lactic Acid Sodium 132 L Potassium 3.7 Chloride 100 Carbon Dioxide 24 Anion Gap 11.7 BUN 19 Creatinine 1.20 Estimated Creat Clear 59 Estimated GFR 58 L Est GFR ( Amer) 71 D Glucose 253 H Lactate 2.5 H Calcium 8.9 Magnesium Total Bilirubin 0.5 AST 76 H ALT 45 Alkaline Phosphatase 86 Ammonia Total Protein 6.2 L Albumin 3.4 L Globulin 2.8 Albumin/Globulin Ratio 1.2 Lipase Salicylates Acetaminophen 58 H D Plasma/Serum Alcohol SARS-CoV-2 (PCR) Not detected Hepatitis C Antibody HIV Ag/Ab Combo Qual Influenza Type A (PCR) Detected A Influenza Type B (PCR) Not detected RSV (PCR) Not detected Rhinovirus (PCR) Not detected 05/27/24 05/27/24 05/27/24 15:58 15:47 15:30 WBC 7.5 RBC 4.90 Hgb 17.4 Hct 50.0 MCV 102.0 H MCH 35.5 H MCHC 34.8 RDW 13.3 Plt Count 169 MPV 11.0 H Neut % (Auto) 73.2 Lymph % (Auto) 15.9 Laurens % (Auto) 9.9 H Eos % (Auto) 0.1 Baso % (Auto) 0.5 Neut # (Auto) 5.5 Lymph # (Auto) 1.2 [place] # (Auto) 0.7 Eos # (Auto) 0.0 Baso # (Auto) 0.0 PT 10.9 INR 0.97 APTT 28.2 VBG pH 7.29 L VBG pCO2 46.8 VBG pO2 34.4 VBG HCO3 22.2 L VBG Total CO2 23.6 VBG O2 Saturation 62.6 VBG Base Excess -4.4 L VBG Lactic Acid 4.8 H Sodium 131 L Potassium 4.0 Chloride 99 Carbon Dioxide 24 Anion Gap 12.0 BUN 21 H Creatinine 1.40 H Estimated Creat Clear 55 Estimated GFR 49 L Est GFR ( Amer) 59 Glucose 299 H Lactate 2.6 H Calcium 8.9 Magnesium 2.1 Total Bilirubin 0.8 AST 78 H ALT 43 Alkaline Phosphatase 90 Ammonia < 9 L Total Protein 6.5 Albumin 3.7 Globulin 2.8 Albumin/Globulin Ratio 1.3 Lipase 272 Salicylates < 1.0 L Acetaminophen 82 H Plasma/Serum Alcohol < 10 SARS-CoV-2 (PCR) Hepatitis C Antibody Non reactive HIV Ag/Ab Combo Qual Negative Influenza Type A (PCR) Influenza Type B (PCR) RSV (PCR) Rhinovirus (PCR) DS: Diagnosis Discharge Diagnosis (1) Metabolic acidosis: Status: Acute Code(s): E87.20 - Acidosis, unspecified (2) CYNTHIA (acute kidney injury): Status: Acute Code(s): N17.9 - Acute kidney failure, unspecified (3) Acetaminophen overdose: Status: Acute Code(s): T39.1X1A - Poisoning by 4-Aminophenol derivatives, accidental (unintentional), initial encounter (4) Hearing loss: Status: Chronic Code(s): H91.90 - Unspecified hearing loss, unspecified ear (5) Memory loss: Status: Chronic Code(s): R41.3 - Other amnesia Meds Home Medications and Allergies Home Medications ?Medication ?Instructions ?Recorded ?Confirmed ?Type No Known Home Medications 05/27/24 05/27/24 History New Prescriptions to Start Prescriptions: Allergies Allergy/AdvReac Type Severity Reaction Status Date / Time No Known Allergies Allergy Verified 05/27/24 15:44 Discharge Plan Disposition Patient Disposition: Home, Self-Care Condition: Good Follow up Plan Follow up with: Aixa Shore APRN [Primary Care Provider] - Enter time for follow up Prescriptions/Medication Reconciliation: No Action No Known Home Medications Problem Reconciliation Problems Reviewed?: Yes Patient Discharge Instructions ACTIVITY: Continue current activity DIET: continue same diet Patient Instructions: Acetaminophen Poisoning, Acute Kidney Injury Print Language: Serbian Providers Primary Care Provider: Aixa Shore Admit Provider: Duran Conklin Attending Provider: Duran Conklin
[2024-05-28 08:00] VITALS: BP 131/78; PULSE 78; RESP 18; TEMP 36.6; O2SAT 96
[2024-05-28] MEDS: OSELTAMIVIR 75MG CAPSULE 75 MG PO (08:26)
--- NOTE | 2024-05-28 08:28 | HMH.PHAINT1 ---
Pharmacy Intervention Comments: Counselled patient and family on new medication prior to discharge. Both verbalized understanding.
--- NOTE | 2024-05-30 11:02 | SW/DCPLANNER ---
Spoke with patients son on the phone. Patients son stated that he is doing okay just sleeping a lot. Patients son stated that they are aware of his upcoming appointment and was able to get his medicine picked up. Patients son stated that they have no concerns or questions at thsis time. Sha Sultana
== END 2024-05-28 08:30 | disposition home or self-care (01) ==
LOC: ER 17:48 → 2ND 18:08
PROVIDERS: Admitting Provider Internal Medicine Adolescent Medicine; Emergency Provider Emergency Medicine; PCP Nurse Practitioner Family; Visit Provider Internal Medicine Adolescent Medicine
DX: E87.21 Acute metabolic acidosis (principal); N17.9 Acute kidney failure, unspecified; T39.1X1A Poisoning by 4-Aminophenol derivatives, accidental (unintentional), initial encounter; R41.3 Other amnesia; T44.4X1A Poisoning by predominantly alpha-adrenoreceptor agonists, accidental (unintentional), initial encounter; T48.3X1A Poisoning by antitussives, accidental (unintentional), initial encounter; Z96.21 Cochlear implant status; H91.91 Unspecified hearing loss, right ear; J10.1 Influenza due to other identified influenza virus with other respiratory manifestations
CPT/HCPCS: 36415; 80053; 80320; 80329; 82140; 82803; 83605; 83690; 83735; 85025; 85610; 85730; 86803; 87389; 87631; 93005; 99291; G0378; J2405; J3475; J7120

== ENCOUNTER 2025-02-04 06:13 | Day surgery (SDC) | payer MEDICARE, SELFPAY ==
[2025-01-31 10:01] VITALS: BMI 27.4
[2025-02-04] VITALS (7 sets, daily range): BP systolic 119–160; BP diastolic 68–82; PULSE 50–79; RESP 16–18; TEMP 36.2–36.6; O2SAT 96–100
[2025-02-04] MEDS: TETRACAINE 0.5% OPTH SOL 15ML OP ×3 (06:26→06:27)
[2025-02-04] MEDS: PHENYLEPHRINE 2.5% OPHTH SOLN 2ML OP ×3 (06:27→06:28)
[2025-02-04] MEDS: CYCLOPENTOLATE 2% OPHTH SOLN 2ML BOTTLE OP ×3 (06:27→06:28)
[2025-02-04] MEDS: MIDAZOLAM 2MG/2ML VIAL 1 MG IV (07:48)
[2025-02-04] MEDS: LIDOCAINE 1% PF 2ML VIAL 2 ML IJ (07:56)
[2025-02-04] MEDS: TIMOLOL 0.5% OPTH SOLN 5ML OP (07:57)
--- NOTE | 2025-02-04 12:56 | P.PCN_ITS ---
[facility] Procedure Note Date: 02/04/25 Time: 12:56 Procedure Note:: Preoperative Diagnosis: Cataract combined NS Cortical Complex [Right] Eye Postop diagnosis: same Operation: Microscopic phacoemulsification with intraocular lens implant [Right] Eye Specimen: None Blood Loss: None The patient was examined in the office with a complaint of poor vision in the [right] eye. The patient reports that this interferes with ADLs such as reading, watching TV and/or driving or the vision is like looking through a foggy haze and is very troubling. The patient was examined and found to have a visually significant cataract with best corrected vision of [20/400] by refraction and/or glare testing. Treatment options, risks and benefits were explained and the patient elected to have cataract surgery in an attempt to improve their vision. The patient had the eye anesthetized with topical tetracaine, the eye ways prepped and draped in the usual fashion for cataract surgery. A paracentesis and a temporal keratotomy were made. 0.2cc of 1% lidocaine PF was placed into the anterior chamber. And aqueous/viscoelastic exchange was done and a 360 degree capsulorexis was performed. Through hydrodissection and delineation with BSS on a cannula was done. The lens nucleus was phecoemulsified with CDE of [6.43]. Residual cortical material was removed using automated I&A The capsular bag was deepened with viscoelastica and a PCIOL was placed in the capsular bag with good centration and stability. Residual viscoelastic was removed using automated I&A. The keratotomy incision was hydrated with BSS on a cannula. The wound were checked and found to be water tight. IOP was checked digitally and adjusted as needed so as not to be too high. 1 drop of timolol 0.5%, ofloxacin, prednisolone acetate and ketorolac was instilled and eye shield taped over the eye. The patient was taken to recovery in good condition and will be seen postoperatively.
== END 2025-02-04 08:24 | disposition home or self-care (01) ==
PROVIDERS: PCP Internal Medicine Adolescent Medicine; Visit Provider Ophthalmology
PROC: (CPT 66984; principal; 2025-02-04 07:30)
DX: H25.813 Combined forms of age-related cataract, bilateral (principal); H53.8 Other visual disturbances; H02.834 Dermatochalasis of left upper eyelid; H02.831 Dermatochalasis of right upper eyelid
CPT/HCPCS: 66984; J2250; V2632

== ENCOUNTER 2025-02-07 17:15 | Emergency (ER) | payer MEDICARE, SELFPAY ==
[2025-02-07 17:19] VITALS: BP 128/86; PULSE 74; RESP 18; TEMP 36.8; O2SAT 97; BMI 30.4
--- NOTE | 2025-02-07 17:29 | PC.NURSE ---
wound dressed with vaseline gauze. 4x4 gauze applied and coban wrapped around arm
[2025-02-07 17:42] VITALS: BP 156/98; PULSE 73; O2SAT 96
[2025-02-07 18:01] VITALS: BP 131/79; PULSE 70; O2SAT 95
--- NOTE | 2025-02-07 18:08 | ED_ITS ---
<Statement entered by Jared Chaudhry DO - 02/08/25 16:32> I was consulted by the TRESSA, and we discussed the complexity of problems being addressed. I approved the treatment and management plan for this patient's care in the emergency department, thus performing a substantive portion of the medical decision making. Jared Chaudhry DO Discharge Plan Disposition Patient Disposition: Home, Self-Care Prescriptions Prescriptions: No Action No Known Home Medications Referrals Follow up/Referrals: Provider,Referral, MD [Primary Care Provider, Medical] - See instructions Activity Restrictions/Add. Instructions Additional Instructions/Restrictions: Today you were diagnosed with a skin tear of your right forearm. Please change the dressing as we discussed, make sure you apply a non-adherent dressing on top of the skin tear. Please keep the area clean and dry, wash with mild soap and water. Do not apply any ointments or peroxide. Return to the ED for worsening of condition. Please follow-up with your primary care provider within 1 week. Clinical Impressions Clinical Impression: Skin tear Instructions Patient Instructions: DI for Minor Laceration Print Language Print Language: [place] Discharge ED Provider: Jared Chaudhry General Adult HPI General Chief complaint: Wound/Laceration Stated complaint: AO -11 fell and right arm pain Time Seen by Provider: 02/07/25 17:50 Mode of Arrival: Ambulatory Source of Information: Patient Description of Symptoms (Recalled from ER Triage Doc. by RN): patient presents to ED with a laceration to the right forearm. patient was sweeping cobwebs off his house when something came back and cut his arm. Patient very [place]. History of Present Illness HPI narrative: patient is an 79-year-old male with no significant PMHx reported who presents to the ED for complaints of a skin tear to his right forearm. Patient states he was walking by a brick column in his home and scraped his arm against a column. He did not fall, he does not have additional injuries. Related Data Home Medications ?Medication ?Instructions ?Recorded ?Confirmed No Known Home Medications 02/04/2502/20 Allergies Allergy/AdvReac Type Severity Reaction Status Date / Time No Known Allergies Allergy Verified 05/27/24 15:44 [facility] Disclaimer: The information contained in this section may have been updated after the patient was seen, as this information can be updated by other users. Medical History (Updated 02/08/25 @ 00:00 by Marc Amado) Hearing loss Surgical History (Updated 02/04/25 @ 06:39 by Rajesh Macias, RN) History of abdominal surgery Family History Other Cancer Diabetes Social History (Updated 02/04/25 @ 06:40 by Rajesh Macias RN) Smoking Status: Never smoker alcohol intake: never substance use type: denies use current occupational status: retired Travel in the last 8 weeks?: None household members: other housing: house marital status: Have you lived/traveled outside [place] in past 30 days?: No Contact w/someone who lives/traveled outside US past 30 days?: No Exposure to someone with infectious disease in past 14 days?: No Do you have a fever (greater than 100.4 F or 38 C)?: No Have you tested positive for COVID-19?: No Exposed to someone with COVID-19 in past 14 days?: No Do you have a sore throat?: No Do you have a cough?: No Do you have any weakness?: No Do you have any diarrhea?: No Are you experiencing any unusual bleeding?: No Do you have any muscle aches/pain?: No Do you have any abdominal pain?: No Are you experiencing loss of taste or smell?: No Other Medical History Have you received the Flu Vaccine for this season: No Have you received the Pneumonia Vaccine: No ROS Obtained: Yes Systems reviewed as appropriate & no additional complaints except as documented Physical Exam General General appearance: alert Head Head exam: atraumatic Eye Eye exam: Present PERRL and EOMI; Absent nystagmus Neck Neck exam: Present full ROM Respiratory Respiratory exam: Present normal lung sounds bilaterally Cardiovascular Cardiovascular exam: Present regular rate Extremities Exam Extremities exam: Present other (Approximately 2 x 2 inch skin tear on right forearm) Neurological Exam Neurological exam: Present alert and oriented X3 Skin Skin exam: Present warm and dry Medical Decision Making Medical Records Screening: Per USPSTF and CDC recommendations, given the prevalence of disease in our region, it is our hospital?s policy to screen for HIV and viral Hepatitis for all patients aged 18 and over and those with ongoing risk factors. Daniel Inquiry Pt receiving controlled substance: No Vital Signs: 02/07/25 17:19 02/07/25 17:42 02/07/25 18:01 Temperature 98.2 F Temperature Source Temporal Artery Scan Pulse Rate 73 70 Pulse Rate [Right Radial] 74 Respiratory Rate 18 Blood Pressure 156/98 H 131/79 Blood Pressure [Right Arm] 128/86 Blood Pressure Mean [Right Arm] 100 Blood Pressure Source [Right Arm] Automatic Cuff Blood Pressure Position [Right Arm] Sitting 02 Sat by Pulse Oximetry 97 96 95 Oxygen Delivery Method Room Air 02/07/25 18:17 Temperature 98.2 F Temperature Source Oral Pulse Rate 75 Pulse Rate [Right Radial] Respiratory Rate 18 Blood Pressure 131/79 Blood Pressure [Right Arm] Blood Pressure Mean [Right Arm] Blood Pressure Source [Right Arm] Blood Pressure Position [Right Arm] 02 Sat by Pulse Oximetry Oxygen Delivery Method Room Air Medical Decision Narrative: In summary, patient is an 79-year-old male with no significant PMHx reported who presents to the ED for complaints of a skin tear to his right forearm. Patient states he was walking by a brick column in his home and scraped his arm against a column. He did not fall, he does not have additional injuries. He is accompanied by his son who helps provide history. Upon initial evaluation, patient is alert and cooperative. He is stable. Physical exam remarkable for approximately 2 x 2 skin tear on the right forearm, no active bleeding. Discussed with patient and family we will clean the wound, unable to close anything at this time however will perform a dressing application and do wound care instructions. Wound was cleaned with Hibiclens thoroughly, after wound was clean, I discussed with patient and son about dressings. I supplied them with extra dressing supplies, we placed a nonadherent dressing padded by 4 x 4 gauze and wrapped with Beba over the area. Advised him to change it daily. We discussed in depth signs and symptoms of infection. Advised that they will need to follow-up with his PCP Monday. We discussed very strict return precautions to the ED and patient and family verbalized understanding. Critical Care Critical Care Time Critical Care Time: No
[2025-02-07 18:17] VITALS: BP 131/79; PULSE 75; RESP 18; TEMP 36.8; O2SAT 98
== END 2025-02-07 18:18 | disposition home or self-care (01) ==
PROVIDERS: Emergency Provider Student in an Organized Health Care Education/Training Program
DX: M79.601 Pain in right arm (principal)
CPT/HCPCS: 99283

== ENCOUNTER 2025-02-18 06:15 | Day surgery (SDC) | payer MEDICARE, SELFPAY ==
[2025-02-17 08:29] VITALS: BMI 28.5
[2025-02-18] VITALS (7 sets, daily range): BP systolic 120–160; BP diastolic 68–83; PULSE 50–62; RESP 16; TEMP 36.1–36.3; O2SAT 98–99; BMI 22.1
[2025-02-18] MEDS: CYCLOPENTOLATE 2% OPHTH SOLN 2ML BOTTLE OP ×3 (06:40→06:50)
[2025-02-18] MEDS: PHENYLEPHRINE 2.5% OPHTH SOLN 2ML OP ×3 (06:40→06:50)
[2025-02-18] MEDS: TETRACAINE 0.5% OPTH SOL 15ML OP ×3 (06:40→06:50)
[2025-02-18] MEDS: MIDAZOLAM 2MG/2ML VIAL 1 MG IV (08:02)
[2025-02-18] MEDS: TIMOLOL 0.5% OPTH SOLN 5ML OP (08:09)
[2025-02-18] MEDS: TOBRAMYCIN/DEX OPTH SUSP 2.5ML OP (08:10)
[2025-02-18] MEDS: LIDOCAINE 1% PF 2ML VIAL 2 ML IJ (08:10)
--- NOTE | 2025-02-18 11:45 | P.PCN_ITS ---
[facility] Procedure Note Date: 02/18/25 Time: 11:45 Procedure Note:: Preoperative Diagnosis: Cataract combined NS Cortical Complex [Left] Eye Postop diagnosis: same Operation: Microscopic phacoemulsification with intraocular lens implant [Left] Eye Specimen: None Blood Loss: None The patient was examined in the office with a complaint of poor vision in the [left] eye. The patient reports that this interferes with ADLs such as reading, watching TV and/or driving or the vision is like looking through a foggy haze and is very troubling. The patient was examined and found to have a visually significant cataract with best corrected vision of [20/400] by refraction and/or glare testing. Treatment options, risks and benefits were explained and the patient elected to have cataract surgery in an attempt to improve their vision. The patient had the eye anesthetized with topical tetracaine, the eye ways prepped and draped in the usual fashion for cataract surgery. A paracentesis and a temporal keratotomy were made. 0.2cc of 1% lidocaine PF was placed into the anterior chamber. And aqueous/viscoelastic exchange was done and a 360 degree capsulorexis was performed. Through hydrodissection and delineation with BSS on a cannula was done. The lens nucleus was phecoemulsified with CDE of [6.75]. Residual cortical material was removed using automated I&A The capsular bag was deepened with viscoelastica and a PCIOL was placed in the capsular bag with good centration and stability. Residual viscoelastic was removed using automated I&A. The keratotomy incision was hydrated with BSS on a cannula. The wound were checked and found to be water tight. IOP was checked digitally and adjusted as needed so as not to be too high. 1 drop of timolol 0.5%, ofloxacin, prednisolone acetate and ketorolac was instilled and eye shield taped over the eye. The patient was taken to recovery in good condition and will be seen postoperatively.
== END 2025-02-18 08:35 | disposition home or self-care (01) ==
PROVIDERS: PCP Internal Medicine Adolescent Medicine; Visit Provider Ophthalmology
DX: H25.812 Combined forms of age-related cataract, left eye (principal); H02.836 Dermatochalasis of left eye, unspecified eyelid; H02.833 Dermatochalasis of right eye, unspecified eyelid
CPT/HCPCS: 66982; J2250; V2632